=== PATIENT | female | born 1995 | race African-American/Black ===

== ENCOUNTER 2016-04-16 08:06 | Emergency (ER) | payer OTHER ==
[2016-04-16 08:12] VITALS: BP 116/75
[2016-04-16] MEDS ORDERED: VANCOMYCIN 1 GM/NS 250 ML IV ONE (08:30)
[2016-04-16] MEDS ORDERED: NORCO-7.5 PO ONE (08:31)
[2016-04-16 09:08] LABS: MANUAL DIFF NEEDED? NO
[2016-04-16 09:14] LABS: BASO% 0.2 % (0.0-0.8); EOS# 0.06 X1000 (0.0-0.7); EOS% 0.5 % (0.0-10.0); HEMATOCRIT 35.8 % (37.0-47.0); HEMOGLOBIN 12.1 g/dL (12.0-16.0); IMM GRAN# 0.02 X1000 (0.0-0.04); IMM GRAN% 0.2 % (0.0-0.5); LYMPH# 1.53 X1000 (1.2-3.4); LYMPH% 13.2 % (20.5-51.1); MCH 29.4 PG (27-31); MCHC 33.8 g/dL (33-37); MCV 87.1 FL (81-99); MONO# 0.77 X1000 (0.11-0.59); MONO% 6.6 % (1.7-9.3); MPV 10.5 FL (7.4-10.4); NEUT% 79.3 % (42.2-75.2); PLT 221 X1000 (130-400); RBC 4.11 XMIL (4.2-5.4)
[2016-04-16 09:20] LABS: URINE SOURCE CLEAN CATCH
[2016-04-16 09:30] LABS: AGAP 13; ALKALINE PHOSPHATASE 74 U/L (32-104); BUN 9 mg/dL (8-22); CALCIUM 9.2 mg/dL (8.8-10.2); CHLORIDE 103 mmol/L (98-107); COSMO 277; GOT 12 U/L (10-30); GPT 9 U/L (10-36); POTASSIUM 3.3 mmol/L (3.5-5.1); SODIUM 139 mmol/L (136-145); TCO2 23 mmol/L (25-35)
[2016-04-16 09:34] LABS: BILIRUBIN URINE 1+ (NEGATIVE); BLOOD URINE 1+ (NEGATIVE); CLARITY SL. CLOUDY (CLEAR); COLOR AMBER; GLUCOSE URINE NEGATIVE (NEGATIVE); LEUKOCYTES URINE 2+ (NEGATIVE); NITRITE URINE POSITIVE (NEGATIVE); PROTEIN URINE 2+(100 mg/dL) mg/dL (NEGATIVE); UROBILINOGEN URINE 4+(12 mg/dL)
[2016-04-16] MEDS ORDERED: ROCEPHIN IM ONE (09:43)
[2016-04-16] MEDS ORDERED: XYLOCAINE-MPF 1% INJ ONE (09:43)
[2016-04-16] MEDS ORDERED: KLOR-CON PO ONE (09:44)
--- NOTE | 2016-04-16 09:50 | PROVIDER DOCUMENTATION ---
HPI-Rash/Wound/ReCheck - General Chief Complaint: Abscess Stated Complaint: ABSCESS Time Seen by Provider: 04/16/16 08:17 Source: patient Allergies/Adverse Reactions: Allergies Allergy/AdvReac Type Severity Reaction Status Date / Time No Known Allergies Allergy Verified 04/16/16 08:19 Home Medications: Home Medication List Medication Instructions Recorded Confirmed Last Taken Type Ciprofloxacin HCl [Cipro] 500 mg PO BID #20 tablet 04/16/16 Unknown Rx Hydrocodone/APAP 7.5 mg/325 mg 1 each PO Q8H PRN PRN #10 tablet 04/16/16 Unknown Rx [[place]-7.5] Mupirocin Ointment [Bactroban 1 applicatn TOP TID #1 tube 04/16/16 Unknown Rx Ointment] Sulfamethoxazole/Trimethoprim 1 each PO BID #20 tablet 04/16/16 Unknown Rx [Bactrim Ds Tablet] - History of Present Illness-Dermatology Nature of Presenting Problem: Reports off and on buttock cellulitis/abscess since one year ago. Denies F/C/N/V , and no rectal bleeding and no abd pain. Pt has been working as a beautician every day and she never seek care for her skin infection so far. Denies DMII/ preg. Stating that her skin infection started after she started control one year ago. She wants to f/u with UROLOGY PHYSICIAN PHYLLIS for this issue. Location: reports: other (See above) Quality: reports: painful Severity: reports: moderate Onset/Duration: reports: other (See above) Timing: reports: still present Context/Associated Symptoms: reports: denies symptoms. denies: incised wound, edema, hives, sore throat, tingling Identifiable cause?: Yes (see above) Exposure: reports: unknown cause Similar Symptoms Previously?: No Recently seen or treated by another doctor?: No Review of Systems - Adult - REVIEW OF SYSTEMS - ADULT Constitutional: reports: no symptoms reported Eyes: reports: no symptoms reported Ears, Nose, Mouth & Throat: reports: no symptoms reported Cardiovascular: reports: no symptoms reported Respiratory: reports: no symptoms reported Gastrointestinal: reports: no symptoms reported Genitourinary: reports: no symptoms reported Musculoskeletal: reports: no symptoms reported Integumentary: reports: see HPI, rash Neurological: reports: no symptoms reported Psychiatric: reports: no symptoms reported Endocrine: reports: no symptoms reported Hematologic/Lymphatic: reports: no symptoms reported Allergic/Immunologic: reports: no symptoms reported All Other Systems: Reviewed and Negative Past History - Adult - PAST MEDICAL HISTORY-ADULT Review of Records: reports: Old Records Reviewed, Nursing Assessment Review, Medications Reviewed Major Childhood Illnesses: reports: denies history Cardiovascular: reports: denies history Respiratory: reports: denies history Gastrointestinal: reports: denies history Obstetrical/Gynecological: reports: denies history Genitourinary: reports: denies history Musculoskeletal: reports: denies history Neurological: reports: headaches/migraines Endocrine/Immune: reports: denies history Other Conditions: reports: denies history - PRIOR SURGERIES/PROCEDURES Surgical/Procedure History: reports: none - IMMUNIZATION STATUS Childhood Immunizations: See Nurse Assessment Flu Vaccine: See Nurse Assessment - FAMILY HISTORY Family History: reviewed, not pertinent Physical Exam-General - PHYSICAL EXAM-ADULT Initial Vital Signs Reviewed: Yes - CONSTITUTIONAL General Appearance: appears well, alert, no apparent distress - EYES Eyes: PERRL/EOMI, pink conjunctivae, fundi clear, no AV nicking - HEAD, EARS, NOSE, MOUTH & THROAT HENMT: normocephalic/atraumatic, moist mucous membranes - NECK Neck: non-tender, full range of motion, supple - RESPIRATORY Respiratory: chest non-tender, lungs clear, normal breath sounds - CARDIOVASCULAR Cardiovascular: normal peripheral pulses, regular rate, rhythm, no edema, no gallop - GASTROINTESTINAL (ABDOMEN) Abdominal Exam: normal bowel sounds, non tender, soft, no organomegaly - MUSCULOSKELETAL Back Exam: normal inspection, no CVA tenderness Extremity: normal range of motion, non-tender, normal gait, normal inspection - SKIN Integumentary: swelling, tenderness, other (Multiple small openings at L buttock area - carbuncle (about palm sized area) with oozing purulent discharges. Small abscess at the tail bone area as well with central opening. No indications for I & D.) - NEUROLOGIC Neurologic: grossly normal, no motor/sensory deficits, abnormal gait - PSYCHIATRIC Psych/Mental Status: normal mood/affect, normal thought content, normal thought process, oriented x 3 Progress - PLAN OF CARE/RESULTS Progress/Plan/Lab Results: Laboratory Results - last 24 hr 04/16/16 04/16/16 04/16/16 08:45 08:45 09:10 WBC 11.59 H RBC 4.11 L Hgb 12.1 Hct 35.8 L MCV 87.1 MCH 29.4 MCHC 33.8 RDW Std Deviation 12.9 Plt Count 221 MPV 10.5 H Immature Gran % (Auto) 0.2 Neut % (Auto) 79.3 H Lymph % (Auto) 13.2 L [place] % (Auto) 6.6 Eos % (Auto) 0.5 Baso % (Auto) 0.2 Immature Gran # (Auto) 0.02 Neut # (Auto) 9.19 H Lymph # (Auto) 1.53 [place] # (Auto) 0.77 H Eos # (Auto) 0.06 Baso # (Auto) 0.02 Sodium 139 Potassium 3.3 L Chloride 103 Carbon Dioxide 23 L Anion Gap 13 BUN 9 Creatinine 0.7 Estimated GFR/1.73 m2 > 60 BUN/Creatinine Ratio 13 Glucose 107 H Calculated Osmolality 277 Calcium 9.2 Total Bilirubin 0.90 AST 12 ALT 9 L Alkaline Phosphatase 74 Total Protein 8.0 Albumin 4.0 Globulin 4.0 Albumin/Globulin Ratio 1.0 Urine Source CLEAN CATCH Urine Color MALACHI Urine Clarity SL. CLOUDY A Urine pH 6.0 Ur Specific [place] 1.020 Urine Protein 2+(100 mg/dL) A Urine Ketones 3+(Large) A Urine Blood 1+ A Urine Nitrite POSITIVE A Urine Bilirubin 1+ A Urine Urobilinogen 4+(12 mg/dL) Urine WBC 2+ A Urine Glucose NEGATIVE Urine Test 04/16/16 09:10 WBC RBC Hgb Hct MCV MCH MCHC RDW Std Deviation Plt Count MPV Immature Gran % (Auto) Neut % (Auto) Lymph % (Auto) [place] % (Auto) Eos % (Auto) Baso % (Auto) Immature Gran # (Auto) Neut # (Auto) Lymph # (Auto) [place] # (Auto) Eos # (Auto) Baso # (Auto) Sodium Potassium Chloride Carbon Dioxide Anion Gap BUN Creatinine Estimated GFR/1.73 m2 BUN/Creatinine Ratio Glucose Calculated Osmolality Calcium Total Bilirubin AST ALT Alkaline Phosphatase Total Protein Albumin Globulin Albumin/Globulin Ratio Urine Source Urine Color Urine Clarity Urine pH Ur Specific [place] Urine Protein Urine Ketones Urine Blood Urine Nitrite Urine Bilirubin Urine Urobilinogen Urine WBC Urine Glucose Urine Test NEGATIVE Bedside Urine ED: Urine Bedside Start: 04/16/16 09:16 Freq: Status: Active Activity Type Activity Date Activity User Co-Sign Detail Recorded Client Recorded Date Recorded By Document 04/16/16 09:16 [id number] 04/16/16 09:16 [id number] 04/16/16 09:16 Point of Care [Bedside Point of Care] -Lot # [id number] - Results Negative -Control Line Visible? Yes Orders Category Date Time Status Saline Loc NOW Care 04/16/16 08:30 Active BLOOD CULTURE [BLDCUL] Stat Lab 04/16/16 08:30 Stop Req CBC WITH DIFF [HEME] Stat Lab 04/16/16 08:45 Completed COMPREHENSIVE METABOLIC PANEL [CHEM] Stat Lab 04/16/16 08:45 Completed TEST-URINE [PREG] Stat Lab 04/16/16 09:[address] W/POSS RFLX CULT [URINALYSIS] Stat Lab 04/16/16 09:10 Results WOUND CULTURE INC GRAM STAIN [RM] Routine Lab 04/16/16 08:32 Ordered CefTRIAXONE [Rocephin] Med 04/16/16 09:43 Discontinued 1 gm IM NOW ONE Hydrocodone/APAP 7.5 mg/325 mg [[place]-7.5] Med 04/16/16 08:31 Discontinued 1 each PO NOW ONE Lidocaine 1% Pf [Xylocaine-Mpf 1%] Med 04/16/16 09:43 Discontinued 5 ml INJ NOW ONE Potassium Chloride E.r. [Klor-Con] Med 04/16/16 09:44 Discontinued 40 meq PO NOW ONE Vancomycin 1 gm/Ns 250 ml Med 04/16/16 08:30 Discontinued IV NOW Vital Signs Temp Pulse Resp BP Pulse Ox 04/16/16 08:10 98.2 F 106 H 18 116/75 100 No Known Allergies Allergy (Verified 04/16/16 08:19) Laboratory 04/16/16 04/16/16 04/16/16 09:10 09:10 08:45 WBC 11.59 H RBC 4.11 L Hgb 12.1 Hct 35.8 L MCV 87.1 MCH 29.4 MCHC 33.8 RDW Std Deviation 12.9 Plt Count 221 MPV 10.5 H Immature Gran % (Auto) 0.2 Neut % (Auto) 79.3 H Lymph % (Auto) 13.2 L [place] % (Auto) 6.6 Eos % (Auto) 0.5 Baso % (Auto) 0.2 Immature Gran # (Auto) 0.02 Neut # (Auto) 9.19 H Lymph # (Auto) 1.53 [place] # (Auto) 0.77 H Eos # (Auto) 0.06 Baso # (Auto) 0.02 Sodium Potassium Chloride Carbon Dioxide Anion Gap BUN Creatinine Estimated GFR/1.73 m2 BUN/Creatinine Ratio Glucose Calculated Osmolality Calcium Total Bilirubin AST ALT Alkaline Phosphatase Total Protein Albumin Globulin Albumin/Globulin Ratio Urine Source CLEAN CATCH Urine Color MALACHI Urine Clarity SL. CLOUDY A Urine pH 6.0 Ur Specific [place] 1.020 Urine Protein 2+(100 mg/dL) A Urine Ketones 3+(Large) A Urine Blood 1+ A Urine Nitrite POSITIVE A Urine Bilirubin 1+ A Urine Urobilinogen 4+(12 mg/dL) Urine WBC 2+ A Urine Glucose NEGATIVE Urine Test NEGATIVE 04/16/16 08:45 WBC RBC Hgb Hct MCV MCH MCHC RDW Std Deviation Plt Count MPV Immature Gran % (Auto) Neut % (Auto) Lymph % (Auto) [place] % (Auto) Eos % (Auto) Baso % (Auto) Immature Gran # (Auto) Neut # (Auto) Lymph # (Auto) [place] # (Auto) Eos # (Auto) Baso # (Auto) Sodium 139 Potassium 3.3 L Chloride 103 Carbon Dioxide 23 L Anion Gap 13 BUN 9 Creatinine 0.7 Estimated GFR/1.73 m2 > 60 BUN/Creatinine Ratio 13 Glucose 107 H Calculated Osmolality 277 Calcium 9.2 Total Bilirubin 0.90 AST 12 ALT 9 L Alkaline Phosphatase 74 Total Protein 8.0 Albumin 4.0 Globulin 4.0 Albumin/Globulin Ratio 1.0 Urine Source Urine Color Urine Clarity Urine pH Ur Specific [place] Urine Protein Urine Ketones Urine Blood Urine Nitrite Urine Bilirubin Urine Urobilinogen Urine WBC Urine Glucose Urine Test Departure - Departure Time of Disposition Order: 09:55 DIAGNOSIS: Cellulitis and abscess of buttock UTI (urinary tract infection) Qualifiers: Urinary tract infection type: acute cystitis Hematuria presence: without hematuria Qualified Code(s): N30.00 - Acute cystitis without hematuria Disposition: HOME 01 Certified Medical Emergency: Emergent Condition: Stable Additional Instructions: Follow up with General surgery in 2-3 days for further management. Return to ER if start to have fever, chills. Prescriptions: Sulfamethoxazole/Trimethoprim [Bactrim Ds Tablet] 1 each PO BID #20 tablet Mupirocin Ointment [Bactroban Ointment] 1 applicatn TOP TID #1 tube Ciprofloxacin HCl [Cipro] 500 mg PO BID #20 tablet Hydrocodone/APAP 7.5 mg/325 mg [[place]-7.5] 1 each PO Q8H PRN PRN #10 tablet PRN Reason: Pain Referrals: Jeffry Warren MD [Primary Care Provider] - Parveen Singh MD [STAFF PHYSICIAN] -
[2016-04-16 10:13] LABS: URINE CULTURE PL NEEDED? YES; URINE EPITHELIAL CELLS >10 /HPF (<10); URINE WBC 20-40 /HPF (<10)
== END 2016-04-16 10:16 | disposition home or self-care (01) ==
LOC: P.ED 08:06
DX: L03.317 Cellulitis of buttock (principal); L02.31 Cutaneous abscess of buttock; N30.00 Acute cystitis without hematuria; R21 Rash and other nonspecific skin eruption; M79.1 Myalgia; R26.9 Unspecified abnormalities of gait and mobility
CPT/HCPCS: 36415; 80053; 81001; 81025; 85025; 87040; 87070; 87088; 96365; 96372; J0696; J3370

== ENCOUNTER 2016-04-21 10:45 | Day surgery (SDC) ==
[2016-04-21] MEDS ORDERED: LR 1,000 ML ONE (11:21)
[2016-04-21] MEDS ORDERED: PEPCID ONE (12:05)
[2016-04-21] MEDS ORDERED: ROBINUL ONE (12:06)
[2016-04-21] MEDS ORDERED: REGLAN ONE (12:06)
[2016-04-21] MEDS ORDERED: VANCOMYCIN 2,000 MG in NS 500 ML IV ONE (13:30)
[2016-04-21] MEDS ORDERED: TYLENOL PO PRN (14:38)
[2016-04-21] MEDS ORDERED: DIPRIVAN 1% ONE (14:46)
[2016-04-21] MEDS ORDERED: FENTANYL ONE (14:46)
[2016-04-21] MEDS ORDERED: TORADOL ONE (14:49)
[2016-04-21] MEDS ORDERED: XYLOCAINE-MPF 2% ONE (14:50)
[2016-04-21] MEDS: DILAUDID ONE ×2 (14:57→15:02)
--- NOTE | 2016-04-21 15:17 | OPERATIVE NOTE ---
PROCEDURE DATE: 04/21/2016 PREOPERATIVE DIAGNOSIS: Left groin and left buttock abscess. POSTOPERATIVE DIAGNOSIS: Left groin and left buttock abscess. PROCEDURE: Incision and drainage of left groin and left buttock abscess. SURGEON: Parveen Singh MD. ANESTHESIA: General. ESTIMATED BLOOD LOSS: 5 mL. COMPLICATIONS: None apparent. SPECIMENS: Pus for culture and sensitivity. FINDINGS: There was a large amount of pus in the left groin. The left buttock had a very small amount of drainage. It was mostly just indurated, although this had improved from yesterday in my office to today the operating room. TECHNIQUE: She was brought to the operating room and placed supine on the table. General anesthesia was induced. She was placed in stirrups. She was prepped and draped in the usual sterile fashion. An incision was made over the fluctuant area in her left groin with a 15 blade. A large amount of purulent fluid was drained. Cultures were taken. The wound was irrigated out with saline. I then did the same over the left buttock indurated area. The wounds were packed with iodoform gauze. She tolerated this well. There were no apparent complications.
[2016-04-21] MEDS ORDERED: NORCO-7.5 PO PRN (16:19)
[2016-04-21] MEDS ORDERED: ZOFRAN IV PRN (16:19)
[2016-04-21] MEDS ORDERED: BUPRENEX IV PRN (16:19)
[2016-04-21 16:37] VITALS: BP 132/80
== END 2016-04-21 16:40 | disposition home or self-care (01) ==
LOC: OR 10:45
PROVIDERS: ATTEND Surgery
DX: L02.214 Cutaneous abscess of groin (principal); L02.31 Cutaneous abscess of buttock; F17.210 Nicotine dependence, cigarettes, uncomplicated
CPT/HCPCS: 87070; 87075; 87205; J1170; J1885; J3010; J3370; J7040; J7120

== ENCOUNTER 2016-04-24 20:39 | Emergency (ER) ==
[2016-04-24] MEDS ORDERED: PREDNISONE PO ONE (21:39)
[2016-04-24 22:07] VITALS: BP 137/74
== END 2016-04-24 22:07 | disposition home or self-care (01) ==
LOC: P.ED 20:39
DX: L29.9 Pruritus, unspecified (principal)
CPT/HCPCS: 99282; J7512

== ENCOUNTER 2019-05-07 19:20 | Inpatient (IN) ==
[~2019-05-07 19:20] MED LIST: CYTOTEC VAG SCH
[2019-05-07] MEDS ORDERED: KEFZOL 1 GM/D5W 1 GM/50 ML IVPB IV PRN (19:35)
[2019-05-07] MEDS ORDERED: PEPCID PO PRN (19:35)
[2019-05-07] MEDS ORDERED: REGLAN PO ONE (19:35)
[2019-05-07] MEDS ORDERED: STADOL IV PRN ×2 (19:35)
[2019-05-07] MEDS ORDERED: ZOFRAN IV PRN (19:35)
[2019-05-07] MEDS ORDERED: BRETHINE SUBQ PRN (19:35)
[2019-05-07] MEDS ORDERED: LR 1,000 ML IV ONE (19:35)
[2019-05-07] MEDS ORDERED: PEPCID PO ONE (19:35)
[2019-05-07] MEDS ORDERED: AMBIEN PO PRN (19:35)
[2019-05-07] MEDS ORDERED: PEPCID IV PRN (19:35)
[2019-05-07] MEDS ORDERED: CYTOTEC VAG ONE (21:00)
[2019-05-07 21:01] LABS: BASO# 0.01 X1000 (0.0-0.2); BASO% 0.1 % (0.0-0.8); EOS% 1.2 % (0.0-10.0); HEMATOCRIT 28.7 % (37.0-47.0); HEMOGLOBIN 9.1 g/dL (12.0-16.0); IMM GRAN# 0.07 X1000 (0.0-0.04); IMM GRAN% 0.9 % (0.0-0.5); MCH 26.1 PG (27-31); MCHC 31.7 g/dL (33-37); MCV 82.2 FL (81-99); MONO# 0.59 X1000 (0.11-0.59); MONO% 7.4 % (1.7-9.3); MPV 10.3 FL (7.4-10.4); NEUT# 5.64 X1000 (1.4-6.5); NEUT% 70.4 % (42.2-75.2); PLT 299 X1000 (130-400); RBC 3.49 XMIL (4.2-5.4); RDW 14.5 % (11.5-14.5); WBC 8.01 X1000 (4.8-10.8)
[2019-05-07 21:19] LABS: RUBELLA SCREEN IMMUNE (IMMUNE)
[2019-05-07 21:27] LABS: RAPID HIV PRESUMPTIVE NEGATIVE
[2019-05-07 23:16] LABS: URINE SOURCE VOIDED
[2019-05-07 23:27] LABS: BILIRUBIN URINE NEGATIVE (NEGATIVE); BLOOD URINE NEGATIVE (NEGATIVE); COLOR YELLOW; GLUCOSE URINE NEGATIVE (NEGATIVE); KETONE URINE TRACE mg/dL (NEGATIVE); LEUKOCYTES URINE LARGE (NEGATIVE); NITRITE URINE NEGATIVE (NEGATIVE); PROTEIN URINE 30 mg/dL (NEGATIVE); TURBIDITY URINE HAZY (CLEAR); UROBILINOGEN URINE 2 mg/dL (NORMAL)
[2019-05-07 23:33] LABS: UR AMPHETAMINES QUAL NONE DETECTED (NONE DETECT); UR BARBITUATES QUAL NONE DETECTED (NONE DETECT); UR BENZODIAZEPIN QUAL NONE DETECTED (NONE DETECT); UR CANNABINOIDS QUAL NONE DETECTED (NONE DETECT); UR COCAINE QUAL NONE DETECTED (NONE DETECT); UR METHADONE QUAL NONE DETECTED (NONE DETECT); UR OPIATES QUAL NONE DETECTED (NONE DETECT); UR OXYCODONE QUAL NONE DETECTED (NONE DETECT); UR PCP QUAL NONE DETECTED (NONE DETECT)
[2019-05-08] MEDS: CYTOTEC VAG SCH ×2 (02:18→05:55)
[2019-05-08] MEDS: STADOL IV PRN ×3 (03:14→09:10)
--- NOTE | 2019-05-08 08:08 | OB/GYN PROGRESS NOTE ---
- Subjective Pt is a 23yo @ 38w3d who presents for IOL secondary to CHTN. Pt received Cytotec 25 mcg PV x 3 doses overnight with little cervical change. Pt reports good FM and occasional ctx. Pain controlled with IV pain meds, stadol, and denies itching. Pt denies LOF/VB/TAYLOR/SOB/scotomata/epigastric pain. OB Physical Exam Vital Signs - 8 hr 05/08/19 00:10 05/08/19 02:40 Temperature 97.4 F L 97.6 F Pulse Rate 94 H 89 Respiratory Rate 18 18 Blood Pressure 135/78 138/90 O2 Sat by Pulse Oximetry 96 100 - CONSTITUTIONAL General Appearance: appears well, alert, no apparent distress - RESPIRATORY Respiratory: lungs clear - CARDIOVASCULAR Cardiovascular: regular rate, rhythm - GASTROINTESTINAL (ABDOMEN) Abdominal Exam: non tender, soft (gravid) - GENITOURINARY Cervica Dilation: 1.5 cm Cervical Effacement: 60% Station: -2 Heart Rate: 130 bpm, moderate variability, +accelerations, -decelerations CAT I tracing - MUSCULOSKELETAL Extremity: no calf tenderness DTR: bicep (R): 1+, bicep (L): 1+ - PSYCHIATRIC Psych/Mental Status: normal mood/affect, oriented x 3 Active Medications Generic Name Dose Route Start Last Admin Trade Name Freq PRN Reason Stop Dose Admin Acetaminophen 650 mg 05/07/19 19:35 Tylenol PO Q4-6H PRN PRN Headache Butorphanol Tartrate 1 mg 05/07/19 19:35 Stadol IV Q2H PRN PRN Pain (1-4 on Pain Scale) Butorphanol Tartrate 2 mg 05/07/19 19:35 Stadol IV PRN PRN Pain Butorphanol Tartrate 2 mg 05/07/19 19:35 05/08/19 06:20 Stadol IV 2 mg Q2H PRN PRN Administration Pain (5-10 on Pain Scale) Famotidine 20 mg 05/07/19 19:35 Pepcid PO Q12H PRN PRN GI upset or indigestion Famotidine 20 mg 05/07/19 19:35 Pepcid IV Q12H PRN PRN GI upset or indigestion Cefazolin Sodium/Dextrose 1 gm in 50 mls @ 100 mls/hr 05/07/19 19:35 Kefzol 1 Gm/D5w IV ONCE PRN PRN section Oxytocin/Sodium Chloride 30 unit in 500 mls @ 0 mls/hr 05/08/19 09:00 Pitocin 30 Units/Ns IV .Q0M MAI As Directed Misoprostol 25 microgm 05/08/19 02:15 05/08/19 05:55 Cytotec VAG 05/08/19 22:16 25 microgm Q4H MAI Administration Ondansetron HCl 4 mg 05/07/19 19:35 05/08/19 03:11 Zofran IV 4 mg PRN PRN Administration Nausea Terbutaline Sulfate 0.25 mg 05/07/19 19:35 Brethine SUBQ PRN PRN tachysystole/hypertonus Zolpidem Tartrate 10 mg 05/07/19 19:35 Ambien PO HS PRN PRN Sleep Laboratory Results - last 24 hr 05/07/19 05/07/19 05/07/19 20:13 20:13 20:39 WBC RBC Hgb Hct MCV MCH MCHC RDW Std Deviation Plt Count MPV Immature Gran % (Auto) Neut % (Auto) Lymph % (Auto) [place] % (Auto) Eos % (Auto) Baso % (Auto) Immature Gran # (Auto) Neut # (Auto) Lymph # (Auto) [place] # (Auto) Eos # (Auto) Baso # (Auto) Glucose Urine Source VOIDED Urine Color YELLOW Urine Turbidity HAZY Urine pH 6.0 Ur Specific [place] 1.030 Urine Protein 30 A Ur Glucose (Stick) NEGATIVE Ur Ketones (Stick) TRACE A Urine Blood NEGATIVE Urine Nitrite NEGATIVE Urine Bilirubin NEGATIVE Urobilinogen Dipstick 2 A Urine Leukocytes LARGE A Urine Opiates Screen NONE DETECTED Ur Oxycodone Screen NONE DETECTED Ur Methadone, Qual NONE DETECTED Ur Barbiturates Screen NONE DETECTED Ur Phencyclidine Scrn NONE DETECTED Ur Amphetamines Screen NONE DETECTED U Benzodiazepines Scrn NONE DETECTED Urine Cocaine Screen NONE DETECTED U Cannabinoids Screen NONE DETECTED RPR NON-REACTIVE HIV 1&2 Antibody Rapid Rubella Immunity Screen Blood Type Blood Type Confirm Antibody Screen 05/07/19 05/07/19 05/07/19 20:39 20:39 20:39 WBC 8.01 RBC 3.49 L Hgb 9.1 L Hct 28.7 L MCV 82.2 MCH 26.1 L MCHC 31.7 L RDW Std Deviation 14.5 Plt Count 299 MPV 10.3 Immature Gran % (Auto) 0.9 H Neut % (Auto) 70.4 Lymph % (Auto) 20.0 L [place] % (Auto) 7.4 Eos % (Auto) 1.2 Baso % (Auto) 0.1 Immature Gran # (Auto) 0.07 H Neut # (Auto) 5.64 Lymph # (Auto) 1.60 [place] # (Auto) 0.59 Eos # (Auto) 0.10 Baso # (Auto) 0.01 Glucose 109 H Urine Source Urine Color Urine Turbidity Urine pH Ur Specific [place] Urine Protein Ur Glucose (Stick) Ur Ketones (Stick) Urine Blood Urine Nitrite Urine Bilirubin Urobilinogen Dipstick Urine Leukocytes Urine Opiates Screen Ur Oxycodone Screen Ur Methadone, Qual Ur Barbiturates Screen Ur Phencyclidine Scrn Ur Amphetamines Screen U Benzodiazepines Scrn Urine Cocaine Screen U Cannabinoids Screen RPR HIV 1&2 Antibody Rapid PRESUMPTIVE NEGATIVE Rubella Immunity Screen IMMUNE Blood Type Blood Type Confirm Antibody Screen 05/07/19 05/07/19 20:39 21:18 WBC RBC Hgb Hct MCV MCH MCHC RDW Std Deviation Plt Count MPV Immature Gran % (Auto) Neut % (Auto) Lymph % (Auto) [place] % (Auto) Eos % (Auto) Baso % (Auto) Immature Gran # (Auto) Neut # (Auto) Lymph # (Auto) [place] # (Auto) Eos # (Auto) Baso # (Auto) Glucose Urine Source Urine Color Urine Turbidity Urine pH Ur Specific [place] Urine Protein Ur Glucose (Stick) Ur Ketones (Stick) Urine Blood Urine Nitrite Urine Bilirubin Urobilinogen Dipstick Urine Leukocytes Urine Opiates Screen Ur Oxycodone Screen Ur Methadone, Qual Ur Barbiturates Screen Ur Phencyclidine Scrn Ur Amphetamines Screen U Benzodiazepines Scrn Urine Cocaine Screen U Cannabinoids Screen RPR HIV 1&2 Antibody Rapid Rubella Immunity Screen Blood Type O POSITIVE Blood Type Confirm O POSITIVE Antibody Screen NEGATIVE OB Assessment & Plan (1) Hypertension affecting in third trimester Status: Acute Plan: 23yo @ 38w3d with CHTN presents for IOL -Induction: s/p cytotec PV x 3 dose. Cook's balloon placed for mechanical dilation (180cc NS in uterine balloon and 120cc NS in vaginal balloon). -Pain mgt: continue IV pain meds. No reports reactions with Stadol. Pt does not desire epidural -Continuous monitoring -Will monitor BP's and signs/symptoms of pre-eclampsia. Pt denies compliance with Labetalol meds. BP well controlled currently. Will hold Labetalol until BP elevated. -Anticipate
--- NOTE | 2019-05-08 08:43 | HISTORY AND PHYSICAL ---
HISTORY OF PRESENT ILLNESS: Ms. Rivas is a 23-year-old, 2, para 1-0-0-1, at 38 weeks 2 days, who presents to Labor and Delivery for scheduled induction of labor secondary to chronic hypertension. The patient reports noncompliance with prescribed medications during current . The patient prescribed low-dose aspirin for preeclampsia prophylaxis and labetalol 100 mg p.o. b.i.d., but denies taking medication. The patient has been referred to Maternal Medicine for chronic hypertension. Last scan at 36 weeks showed fetus weighing approximately 7 pounds 5 ounces. The patient admits to good movement. Denies contractions, leakage of fluid, or vaginal bleeding. ALLERGIES: Hydrocodone, reaction is itching; tramadol, reaction is itching. MEDICATIONS PRESCRIBED: vitamins, low-dose aspirin, labetalol 100 mg b.i.d., however, the patient admits to noncompliance with all medications. PAST MEDICAL HISTORY: Chronic hypertension, cholelithiasis. SURGERIES: None. GYNECOLOGICAL HISTORY: Menarche at age 8. Denies STD exposure. OBSTETRICAL HISTORY: 2, para 1-0-0-1, one prior vaginal delivery on 02/13/2015 at 39 weeks. No complications. Male , weighing 7 pounds 1 ounce. FAMILY HISTORY: Noncontributory. SOCIAL HISTORY: Denies tobacco, alcohol, or drug use. PHYSICAL EXAMINATION: VITAL SIGNS: Temperature 97.4 degrees Fahrenheit, blood pressure 135/78, pulse 94, respiration 18, and O2 saturation is 96% on room air. GENERAL: On physical exam, in no acute distress. Alert, awake, oriented x3. RESPIRATORY: Clear to auscultation bilaterally. Negative rhonchi, rales, or wheezing. CARDIOVASCULAR: Regular rate and rhythm. Positive S1 and S2. ABDOMEN: Gravid, nontender to palpation. It is soft. EXTREMITIES: No calf tenderness. There is +1 edema. VAGINAL: Sterile vaginal exam, closed, thick and high. LABORATORY DATA: WBCs 8.01, hemoglobin 9.1, hematocrit 28.7, platelets 299,000. Glucose 109. RPR nonreactive. HIV nonreactive. Rubella immune. Blood type O positive. Antibody screen negative. GBS negative. ASSESSMENT: Ms Rivas is a 23-year-old, 2, para 1-0-0-1, at 38 weeks 2 days, who presents for induction of labor secondary to chronic hypertension. PLAN: 1. Admit to Labor and Delivery. 2. Obtain routine labor labs. 3. Monitor closely for superimposed preeclampsia. 4. Continuous electronic monitoring. 5. Plan for induction with Cytotec 25 mcg per vagina every 4 hours p.r.n. 6. The patient counseled on alternatives, risks and benefits of induction of labor. Risks not limited to infection, bleeding, vaginal laceration, need for vacuum delivery or emergency delivery. The patient understands risks and agrees to procedure. Estimated weight of 8 pounds. 7. Anticipate spontaneous vaginal delivery.
[2019-05-08] MEDS ORDERED: PITOCIN 30 UNITS/NS 30 UNIT/500 ML IV.SOLN IV SCH ×2 (09:00→18:45)
[2019-05-08] MEDS: LR 1,000 ML IV SCH ×2 (09:15→10:50)
[2019-05-08 09:37] LABS: HEPATITIS B SURFACE ANTIGEN SEE COMMENTS
[2019-05-08] MEDS ORDERED: NAROPIN 0.2% INJ ONE ×2 (09:45→10:00)
[2019-05-08] MEDS ORDERED: FENTANYL-BUPIV-NS 500 MCG-0.125% 250 ML EPIDURAL SCH ×2 (10:00)
[2019-05-08] MEDS ORDERED: FENTANYL IV ONE (10:00)
[2019-05-08 15:56] LABS: HIV ANTIBODY SCREEN SEE COMMENTS
[2019-05-08] MEDS ORDERED: XYLOCAINE-MPF 1% INJ ONE (16:17)
[2019-05-08] MEDS ORDERED: MINERAL OIL PO ONE (16:18)
[2019-05-08] MEDS ORDERED: PITOCIN IM ONE (18:15)
[2019-05-08] MEDS ORDERED: PITOCIN ONE (18:16)
[2019-05-08] MEDS ORDERED: CYTOTEC ONE (18:22)
[2019-05-08] MEDS ORDERED: CYTOTEC VAG ONE (18:23)
[2019-05-08] MEDS ORDERED: AMBIEN PO PRN (18:35)
[2019-05-08] MEDS ORDERED: M-M-R II VACCINE SUBQ ONE (18:35)
[2019-05-08] MEDS ORDERED: XYLOCAINE-MPF 1% INJ PRN (18:35)
[2019-05-08] MEDS ORDERED: NORCO-5 PO PRN (18:35)
[2019-05-08] MEDS ORDERED: CYTOTEC PO PRN (18:35)
[2019-05-08] MEDS ORDERED: BOOSTRIX VACCINE IM ONE (18:35)
[2019-05-08] MEDS ORDERED: MINERAL OIL PO PRN (18:35)
[2019-05-08] MEDS ORDERED: HYDROXYZINE IM PRN (18:35)
[2019-05-08] MEDS ORDERED: BENADRYL IV PRN (18:35)
[2019-05-08] MEDS ORDERED: BENADRYL PO PRN (18:35)
[2019-05-08] MEDS ORDERED: PITOCIN IM PRN (18:35)
[2019-05-08] MEDS ORDERED: ATARAX PO PRN (18:35)
[2019-05-08] MEDS ORDERED: PITOCIN 20 UNITS/NS 20 UNITS/1,000 ML IV.SOLN IV SCH (18:45)
[2019-05-08] MEDS: MOTRIN PO PRN (20:02)
[2019-05-08] MEDS: TYLENOL PO PRN (20:02)
[2019-05-08] MEDS: PERICOLACE PO SCH (23:07)
[2019-05-08] MEDS: PERI MEDS (DERMOPLAST/NUPERCAINAL/TUCKS) MISC PRN (23:07)
[2019-05-09] MEDS: CYTOTEC VAG SCH (00:15)
[2019-05-09] MEDS: TYLENOL PO PRN ×4 (01:48→20:17)
[2019-05-09] MEDS: MOTRIN PO PRN ×3 (04:15→21:56)
[2019-05-09 05:33] LABS: BASO# 0.02 X1000 (0.0-0.2); BASO% 0.1 % (0.0-0.8); EOS# 0.09 X1000 (0.0-0.7); EOS% 0.7 % (0.0-10.0); HEMATOCRIT 27.4 % (37.0-47.0); HEMOGLOBIN 8.4 g/dL (12.0-16.0); IMM GRAN# 0.05 X1000 (0.0-0.04); IMM GRAN% 0.4 % (0.0-0.5); LYMPH% 13.4 % (20.5-51.1); MCH 25.5 PG (27-31); MCHC 30.7 g/dL (33-37); MCV 83.3 FL (81-99); MONO# 0.89 X1000 (0.11-0.59); MONO% 6.6 % (1.7-9.3); MPV 10.5 FL (7.4-10.4); NEUT# 10.55 X1000 (1.4-6.5); NEUT% 78.8 % (42.2-75.2); PLT 266 X1000 (130-400); RBC 3.29 XMIL (4.2-5.4); RDW 14.3 % (11.5-14.5)
[2019-05-09] MEDS: FERROUS SULFATE PO SCH (09:06)
[2019-05-09] MEDS: TRANDATE PO SCH ×2 (11:06→20:26)
[2019-05-09] MEDS: PERICOLACE PO SCH (20:16)
[2019-05-10] MEDS ORDERED: XYLOCAINE-MPF 1% INJ ONE (07:12)
[2019-05-10] MEDS ORDERED: ROCEPHIN IM ONE (07:12)
[2019-05-10] MEDS ORDERED: ZITHROMAX PO ONE (07:12)
--- NOTE | 2019-05-10 07:19 | OB/GYN PROGRESS NOTE ---
- Subjective Pt seen and examined. Pt is a PPD#2 s/p . Currently w/o complaints. Pain well controlled. Ambulating and urinating without complications. Admits to decreased lochia. Reports difficulty with breast feeding but will continue to try and supplement with formula. Tolerating regular diet. Denies fever, chills, nausea, vomiting, headache, scotomata, sob or epigastric pain. Pt informed of positive GC/CHL screen. Denies abnormal vaginal discharge or abdominal pain OB Physical Exam Vital Signs - 8 hr 05/10/19 00:06 Temperature 97.2 F L Pulse Rate 102 H Respiratory Rate 20 Blood Pressure 105/55 O2 Sat by Pulse Oximetry 99 - CONSTITUTIONAL General Appearance: appears well, alert, no apparent distress - RESPIRATORY Respiratory: lungs clear - CARDIOVASCULAR Cardiovascular: regular rate, rhythm - GASTROINTESTINAL (ABDOMEN) Abdominal Exam: non tender, soft (FF below umbilicus) - MUSCULOSKELETAL Extremity: non-tender, no calf tenderness - PSYCHIATRIC Psych/Mental Status: normal mood/affect, oriented x 3 Active Medications Generic Name Dose Route Start Last Admin Trade Name Freq PRN Reason Stop Dose Admin Acetaminophen 650 mg 05/07/19 19:35 05/09/19 20:17 Tylenol PO 650 mg Q4-6H PRN PRN Administration Headache Azithromycin 1,000 mg 05/10/19 07:12 Zithromax PO 05/10/19 07:13 NOW ONE Benzocaine 1 each 05/08/19 18:35 05/08/19 23:07 Sapphire Meds (Dermoplast/Nupercainal/Tucks) MISC 1 applic 3-4XDAY PRN PRN Administration episiotomy/hemorrhoids Ceftriaxone Sodium 250 mg 05/10/19 07:12 Rocephin IM 05/10/19 07:13 NOW ONE Diphenhydramine HCl 12.5 mg 05/08/19 18:35 Benadryl IV Q4H PRN PRN Itching Diphenhydramine HCl 25 mg 05/08/19 18:35 Benadryl PO Q4H PRN PRN Itching Famotidine 20 mg 05/07/19 19:35 Pepcid PO Q12H PRN PRN GI upset or indigestion Ferrous Sulfate 325 mg 05/09/19 09:00 05/09/19 09:06 Ferrous Sulfate PO 325 mg DAILY MAI Administration Hydroxyzine HCl 50 mg 05/08/19 18:35 Atarax PO Q3-4H PRN PRN Nausea Hydroxyzine HCl 50 mg 05/08/19 18:35 Hydroxyzine IM Q3-4H PRN PRN Nausea Ibuprofen 800 mg 05/08/19 18:35 05/09/19 21:56 Motrin PO 800 mg Q8H PRN PRN Administration cramping Labetalol HCl 100 mg 05/09/19 10:30 05/09/19 20:26 Trandate PO 100 mg BID MAI Administration Lidocaine HCl 5 ml 05/10/19 07:12 Xylocaine-Mpf 1% INJ 05/10/19 07:13 NOW ONE Misoprostol 800 microgm 05/08/19 18:35 Cytotec PO PRN PRN Severe bleeding Oxytocin 20 unit 05/08/19 18:35 Pitocin IM PRN PRN Severe bleeding Senna/Docusate Sodium 1 each 05/08/19 21:00 05/09/19 20:16 Pericolace PO 1 each QHS MAI Administration Terbutaline Sulfate 0.25 mg 05/07/19 19:35 Brethine SUBQ PRN PRN tachysystole/hypertonus Zolpidem Tartrate 10 mg 05/07/19 19:35 Ambien PO HS PRN PRN Sleep Zolpidem Tartrate 10 mg 05/08/19 18:35 Ambien PO HS PRN PRN Sleep Laboratory Results - last 24 hr 05/07/19 20:13 Ur Chlamydia/GC DNA SEE COMMENTS OB Assessment & Plan (1) Hypertension affecting in third trimester Status: Acute Plan: - (2) Vaginal delivery Status: Acute Plan: 23yo PPD#2 s/p with chronic HTN and positive STD exposure -HD stable -oob to ambulation -reg diet -reviewed signs/symptoms of pre-eclmapsia. Will continue Labetalol 100mg PO BID -Informed of positive STI screening for GC/CHL. Will treat with Ceftriaxone 250 mg IM x 1 dose and Azithromycin 1000 mg PO x 1 dose. Advise importance of informing partner of STI exposure and treatment. Advised no coitus x 6 weeks -Will re-screen pt at 6 weeks PP visit -Plan for d/c home
[2019-05-10] MEDS ORDERED: XYLOCAINE 1% INJ ONE (07:45)
[2019-05-10] MEDS: PERI MEDS (DERMOPLAST/NUPERCAINAL/TUCKS) MISC PRN (07:58)
[2019-05-10] MEDS: TRANDATE PO SCH (08:04)
[2019-05-10] MEDS: FERROUS SULFATE PO SCH (08:04)
[2019-05-10] MEDS: MOTRIN PO PRN (08:55)
[2019-05-10] MEDS: TYLENOL PO PRN (08:56)
[2019-05-10 09:38] VITALS: BP 119/67
== END 2019-05-10 10:45 | disposition home or self-care (01) | DRG 806 ==
LOC: LD 19:20
PROVIDERS: ADMIT Obstetrics & Gynecology; ATTEND Obstetrics & Gynecology